=== PATIENT | female | born 2005 | race Caucasian/White ===

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

== ENCOUNTER 2024-08-30 02:21 | Emergency (ER) | payer BC ==
--- NOTE | 2024-08-30 02:44 | ED ---
Female Urogenital HPI - General Chief complaint: Urogenital Stated complaint: abd pain Time Seen by Provider: 08/30/24 02:36 Source: patient, RN notes reviewed Mode of arrival: ambulatory Limitations: no limitations - History of Present Illness Initial comments: This is a 19-year-old female presenting for pelvic burning x 2 hours. Patient endorses burning in the genital region with associated burning with urination increased frequency as well as urgency. Patient denies fever, chills, mid back pain, vaginal discharge. States she is currently on her period but denies abdominal pain or nausea/vomiting. MD Complaint: dysuria Onset/Timin -: hour(s) Location: labia, perineum Radiation: non-radiating Severity scale (1-10): 10 Quality: burning Consistency: constant Worsens with: urination Patient : No - Related Data Previous Rx's Medication Instructions Recorded Ofloxacin 0.3% Ophth Soln [Ocuflox 5 - 7 drops BOTH EARS BID #10 03/13/17 Ophth Soln] bottle Sulfamethox-Tmp 800-160Mg [Bactrim 1 each PO Q12HR #6 tab 09/18/23 Ds] Ciprofloxacin HCl [Cipro] 500 mg PO Q12HR #20 tablet 08/30/24 Phenazopyridine [Pyridium] 200 mg PO TID #15 tablet 08/30/24 Allergies Allergy/AdvReac Type Severity Reaction Status Date / Time amoxicillin [Amoxicillin] Allergy Rash/Hives Verified 08/30/24 02:25 Penicillins Allergy Rash/Hives Verified 08/30/24 02:25 Sulfa (Sulfonamide Allergy Rash/Hives Verified 08/30/24 02:25 Antibiotics) Review of Systems ROS Statement: Those systems with pertinent positive or pertinent negative responses have been documented in the HPI. ROS Other: All systems not noted in ROS Statement are negative. Past Medical History Past Medical History: No Reported History Additional Past Medical History / Comment(s): pt had tonsils and adenoids out at age 2 1/2 and also had tubes in ears at that time. (one procedure) hx of constipation. no other hx. PCOS History of Any Multi-Drug Resistant Organisms: None Reported Past Surgical History: Adenoidectomy, Appendectomy, Ear Surgery, Tonsillectomy Additional Past Surgical History / Comment(s): BMT-X2 Past Anesthesia/Blood Transfusion Reactions: No Reported Reaction Past Psychological History: No Psychological Hx Reported Smoking Status: Never smoker Past Alcohol Use History: Occasional Past Drug Use History: None Reported - Past Family History Father Family Medical History: Hyperlipidemia Additional Family Medical History / Comment(s): paternal aunt of heart defect after . Paternal GF neuropathy, diverticulosis, early Alzhimers, hpertension, fullt ulcers, below the knee amputation. Paternal GM hypothyroid, hypertention. Mother Family Medical History: No Reported History Additional Family Medical History / Comment(s): mom has hypothyroid and anxiety. General Exam Limitations: no limitations General appearance: alert, in distress (Patient is tearful) Head exam: Present: atraumatic, normocephalic, normal inspection Eye exam: Present: normal appearance, PERRL, EOMI. Absent: scleral icterus, conjunctival injection, periorbital swelling ENT exam: Present: normal exam, mucous membranes moist Neck exam: Present: normal inspection. Absent: tenderness, meningismus, lymphadenopathy Respiratory exam: Present: normal lung sounds bilaterally. Absent: respiratory distress, wheezes, rales, rhonchi, stridor Cardiovascular Exam: Present: regular rate, normal rhythm, normal heart sounds. Absent: systolic murmur, diastolic murmur, rubs, gallop, clicks GI/Abdominal exam: Present: soft, diminished bowel sounds, hypoactive bowel sounds. Absent: distended, tenderness (Abdomen nontender throughout), guarding, rebound, rigid Extremities exam: Present: normal inspection, full ROM, normal capillary refill. Absent: tenderness, pedal edema, joint swelling, calf tenderness Back exam: Present: normal inspection. Absent: CVA tenderness (R), CVA tenderness (L) Neurological exam: Present: alert, oriented X3, CN II-XII intact Psychiatric exam: Present: normal affect, normal mood Skin exam: Present: warm, dry, intact, normal color. Absent: rash Course Vital Signs 08/30/24 02:22 Temperature 97.8 F Pulse Rate 64 Respiratory 18 Rate Blood Pressure 111/77 O2 Sat by Pulse 96 Oximetry Medical Decision Making - Medical Decision Making Was pt. sent in by a medical professional or institution (, PA, FRAME WIRER, urgent care, hospital, or [place] [facility] facility...) When possible be specific @ -No Did you speak to anyone other than the patient for history (EMS, parent, family, police, friend...)? What history was obtained from this source @ -No Did you review nursing and triage notes (agree or disagree)? Why? @ -I reviewed and agree with nursing and triage notes Were old charts reviewed (outside hosp., previous admission, EMS record, old EKG, old radiological studies, urgent care reports/EKG's, [place] [facility] facility records)? Report findings @ -No old charts were reviewed Differential Diagnosis (chest pain, altered mental status, abdominal pain women, abdominal pain men, vaginal bleeding, weakness, fever, dyspnea, syncope, headache, dizziness, GI bleed, back pain, seizure, CVA, palpatations, mental health, musculoskeletal)? @ -Differential Abdominal Pain Women: Appendicitis, Cholecystitis, diverticulosis, ischemic bowel, pancreatitis, hepatitis, UTI, gastroenteritis, AAA, incarcerated hernia, bowel obstruction, constipation, inflammatory bowel, hepatitis, peptic ulcer disease, splenic infarction, perforated viscus, vulvitis, ovarian torsion, PID, kidney stone, placenta abruption, this is not meant to be an all-inclusive list EKG interpreted by me (3pts min.). @ -Not done X-rays interpreted by me (1pt min.). @ -None done CT interpreted by me (1pt min.). @ -None done U/S interpreted by me (1pt. min.). @ -None done What testing was considered but not performed or refused? (CT, X-rays, U/S, labs)? Why? @ -None What meds were considered but not given or refused? Why? @ -None Did you discuss the management of the patient with other professionals (professionals i.e. , PA, FRAME WIRER, lab, RT, psych nurse, social service manager, crayon molding machine operator, teacher, senior major gifts officer, case folder)? Give summary @ -No Was smoking cessation discussed for >3mins.? @ -No Was critical care preformed (if so, how long)? @ -No Were there social determinants of health that impacted care today? How? (Homelessness, low income, unemployed, alcoholism, drug addiction, transportation, low edu. Level, literacy, decrease access to med. care, skilled nursing, rehab)? @ -No Was there de-escalation of care discussed even if they declined (Discuss DNR or withdrawal of care, Hospice)? DNR status @ -No What co-morbidities impacted this encounter? (DM, HTN, Smoking, COPD, CAD, Cancer, CVA, ARF, Chemo, Hep., AIDS, mental health diagnosis, sleep apnea, morbid obesity)? @ -None Was patient admitted / discharged? Hospital course, mention meds given and route, prescriptions, significant lab abnormalities, going to OR and other pertinent info. @ -Patient notes significant pain relief with medication provided. Ciprofloxacin and Pyridium sent to patient's pharmacy. Advised to increase wa ter and cranberry juice intake. Return to ER if experiencing fever, chills, mid back pain. Discussed patient with Dr. Hooper. Undiagnosed new problem with uncertain prognosis? @ -No Drug Therapy requiring intensive monitoring for toxicity (Heparin, Nitro, Insulin, Cardizem)? @ -No Were any procedures done? @ -No Diagnosis/symptom? @ -Urinary tract infection Acute, or Chronic, or Acute on Chronic? @ -Acute Uncomplicated (without systemic symptoms) or Complicated (systemic symptoms)? @ -Uncomplicated Side effects of treatment? @ -No Exacerbation, Progression, or Severe Exacerbation? @ -No Poses a threat to life or bodily function? How? (Chest pain, [place], [place], pneumonia, PE, COPD, DKA, ARF, appy, cholecystitis, CVA, Diverticulitis, Homicidal, Suicidal, threat to staff... and all critical care pts) @ -No - Lab Data Lab Results 08/30/24 08/30/24 Range/Units 03:20 03:20 Urine Color Dark Brown Urine Appearance Cloudy H (Clear) Urine pH 5.5 (5.0-8.0) Ur Specific [place] 1.029 (1.001-1.035) Urine Protein Trace H (Negative) Urine Glucose (UA) Negative (Negative) Urine Ketones Negative (Negative) Urine Blood Large H (Negative) Urine Nitrite Negative (Negative) Urine Bilirubin Negative (Negative) Urine Urobilinogen <2.0 (<2.0) mg/dL Ur Leukocyte Esterase Large H (Negative) Urine RBC >182 H (0-5) /hpf Urine WBC >182 H (0-5) /hpf Ur Squamous Epith Cells 1 (0-4) /hpf Urine Bacteria Rare H (None) /hpf Urine Mucus Few H (None) /hpf Urine HCG, Qual Not Detected (Not Detectd) Disposition Clinical Impression: Urinary tract infection Disposition: HOME SELF-CARE Condition: Good Instructions (If sedation given, give patient instructions): Urinary Tract Infection in Women (ED) Additional Instructions: Increase water and cranberry juice intake. Return to ER if experiencing fever, chills, mid back pain, blood in urine, worsening symptoms despite antibiotic use. Prescriptions: Ciprofloxacin HCl [Cipro] 500 mg PO Q12HR #20 tablet Phenazopyridine [Pyridium] 200 mg PO TID #15 tablet Is patient prescribed a controlled substance at d/c from ED?: No Referrals: Clifton Altamirano DO [Primary Care Provider] - 1-2 days Time of Disposition: 03:30
[2024-08-30] MEDS: KETOROLAC 15 MG/ML 1 ML VIAL IM STA (03:32)
[2024-08-30] MEDS: CIPROFLOXACIN HCL 500 MG TAB PO STA (03:36)
[2024-08-30] MEDS: ACETAMINOPHEN TAB 500 MG TAB PO STA (03:36)
[2024-08-30] MEDS: HYDROmorphone 1 MG/ML 1 ML SYRINGE IM STA (03:37)
[2024-08-30] MEDS: PHENAZOPYRIDINE 200 MG TAB PO STA (03:42)
[2024-08-30 03:55] LABS: Bacteria,Urine Rare /hpf; Bilirubin,Urine Negative (Negative); Blood,Urine Large (Negative); Color,Urine Dark Brown; Glucose,Urine (UA) Negative (Negative); Ketones,Urine Negative (Negative); Leukocyte Esterase,Urine Large (Negative); Mucus,Urine Few /hpf; Nitrite,Urine Negative (Negative); PH, Urine 5.5 (5.0-8.0); Protein,Urine Trace (Negative); RBC,Urine >182 /hpf (0-5); Specific Gravity,Urine 1.029 (1.001-1.035); Squamous Epithelial Cell,Urine 1 /hpf (0-4); Urobilinogen,Urine <2.0 mg/dL (<2.0); WBC,Urine >182 /hpf (0-5)
[2024-08-30 04:18] VITALS: BP 102/70; PULSE 50; RESP 14; TEMP 97.9
[2024-08-30 14:44] LABS: C. trachomatis,PCR Negative (Negative); N. gonorrhoeae,PCR Negative (Negative)
== END 2024-08-30 04:23 | disposition home or self-care (01) ==
LOC: EC 02:21
DX: N39.0 Urinary tract infection, site not specified (principal); Z88.0 Allergy status to penicillin; Z88.1 Allergy status to other antibiotic agents; Z88.2 Allergy status to sulfonamides
CPT/HCPCS: 99283; 96372; 81001; 81025; 87491; 87591; 87086; J1171; J1885